=== PATIENT | male | born 1975 ===

== ENCOUNTER 2022-06-05 13:04 | Emergency (ER) | payer MEDICAID, SELFPAY ==
[2022-06-05 13:18] VITALS: BP 127/78; PULSE 72; RESP 16; TEMP 36.6; O2SAT 98; BMI 24.2
--- NOTE | 2022-06-05 14:01 | ED_ITS ---
HPI - Anxiety General Chief Complaint: Anxiety Stated Complaint: anxiety Time Seen by Provider: 06/05/22 13:31 Source: patient Mode of arrival: ambulatory History of Present Illness HPI narrative: This is a 47 years old male presented to the emergency department with a chief complaint of anxiety, denies SI and HI, he states that he live alone and feels lonely. complaint: anxiety Onset (ago): day(s) (2) Severity: mild Quality: constant Relieving factors: nothing Exacerbating factors: nothing Related Data Previous Rx's Medication Instructions Recorded lorazepam 1 mg tablet 1 mg PO DAILY PRN anxiety #3 tabs 06/05/22 Allergies Allergy/AdvReac Type Severity Reaction Status Date / Time No Known Allergies Allergy Verified 06/05/22 13:25 Review of Systems Constitutional: Constitutional: Reports no additional constitutional complaints ENT: Reports system reviewed and no additional complaints, except as documented Respiratory: Respiratory: Reports no additional respiratory complaints Genitourinary: Genitourinary: Reports no additional male genitourinary complaints [facility] Social History Social History Advance Directives: No Advance Directives Information Provided: Yes Physical Exam Vital Signs: Vital Signs: Last Vital Signs Temp 97.8 F 06/05/22 13:18 Pulse 72 06/05/22 13:18 Resp 16 06/05/22 13:18 BP 127/78 06/05/22 13:18 Pulse Ox 98 06/05/22 13:18 O2 Del Method 06/05/22 13:18 BMI result Body Mass Index 24.2 Const: General: cooperative and anxious Nutritional Appearance: average body habitus Orientation/consciousness: patient oriented x3 Limitations: no limitations HEENT: Head: Yes normal to inspection General nose exam: Normal external nose present Face and sinus: Yes normal facial exam Mouth: Normal oral and palatal mucosa present Throat: Yes posterior oropharynx normal Eyes: EOM: EOMs intact bilaterally Neck: Neck: Yes normal visual inspection and Yes full ROM Chest: Chest palpation & inspection: normal inspection of the chest Resp: Effort & Inspection: normal respiratory effort and able to speak in complete sentences Auscultation: clear to auscultation bilaterally Cardio: Jugular venous distension: no JVD Rate: regular rate Rhythm: regular rhythm GI: Inspection: Yes normal to inspection Palpation (GI): Soft to palpation, not firm, nontender, no guarding and not rigid : General: Yes no CVA tenderness Back/Spine/Pelvis: Back: no CVA tenderness Skin: General skin exam: no rashes or lesions noted and elasticity normal Lesions: no lesions Rashes: no rashes Neuro: General: patient oriented x3 Cranial nerves: Yes CN's II-XII intact bilaterally Course Reevaluation(s) Reevaluation #1: We are waiting for crisis eval Time: 16:22 Reevaluation #2: seen by crisis team cleared for d/c ,I will give #3 lorazepam 1mg MDM - Anxiety Lab Data Labs: Lab Results 06/05/22 06/05/22 Range/Units 14:32 14:32 Urine Color YELLOW Urine Appearance HAZY Urine pH 5.5 (5.0-8.0) Ur Specific [place] 1.020 (1.005-1.025) Urine Protein NEG (NEG-TRACE) MG/DL Urine Glucose (UA) NEG (NEG) MG/DL Urine Ketones NEG (NEG) MG/DL Urine Blood 3+ H (NEG) Urine Nitrite NEG (NEG) Ur Leukocyte Esterase NEG (NEG) Urine RBC 5-9 H (0) /HPF Urine WBC 0-2 (0-4) /HPF Ur Squamous Epith Cells 1+ /LPF Urine Bacteria NONE /LPF Urine Opiates Screen Not Detected (Not Detect) Urine Fentanyl Screen Not Detected (Not Detect) Ur Barbiturates Screen Not Detected (Not Detect) Ur Phencyclidine Scrn Not Detected (Not Detect) Ur Amphetamines Screen Not Detected (Not Detect) U Benzodiazepines Scrn Not Detected (Not Detect) Urine Cocaine Screen Not Detected (Not Detect) U Marijuana (THC) Screen POSITIVE H (Not Detect) Discharge Plan Discharge Clinical Impression: Acute anxiety Patient Disposition: Home, Self-Care Instructions: Anxiety (ED) Additional Instructions: call the psychiatric service as discussed,call the number give to you by care team Prescriptions: New lorazepam 1 mg tablet 1 mg PO DAILY PRN (Reason: anxiety) Qty: 3 0RF
[2022-06-05] MEDS: LORazepam 1 MG TABLET PO (14:04)
[2022-06-05 14:53] LABS: Appearance Urine HAZY; Color Urine YELLOW; Glucose Urine UA NEG (NEG); Leukocyte Esterase Urine NEG (NEG); Nitrite Urine NEG (NEG); PH 5.5 (5.0-8.0); UACC Culture Trigger NO; Urine Blood 3+ (NEG); Urine Ketones NEG (NEG); Urine Protein NEG (NEG-TRACE)
[2022-06-05 14:57] LABS: Amphetamine Screen Urine Not Detected (Not Detect); Barbiturates, Urine Not Detected (Not Detect); Benzodiazepines Screen Urine Not Detected (Not Detect); Cannabinoid Screen Urine POSITIVE (Not Detect); Cocaine Screen Urine Not Detected (Not Detect); Fentanyl, urine Not Detected (Not Detect); Opiate Screen Urine Not Detected (Not Detect); Phencyclidine Screen Urine Not Detected (Not Detect)
[2022-06-05 15:07] LABS: Squamous Epithelial Cell Urine 1+ /LPF
[2022-06-05 15:09] LABS: WBC Urine 0-2 /HPF (0-4)
--- NOTE | 2022-06-05 16:30 | MHC.CARE ---
CARE team consult requested and risk assessment was done. MD refereed PT due to depression and anxiety, he reports poor sleep and lives alone. 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
--- NOTE | 2022-06-05 18:14 | MHC.CARE ---
CARE team met with Pt to assess level of risk for harm to self or others after Pt was referred to CARE team by MD due to depression and anxiety. 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 Pt reports he chokes on his food as the food gets stuck in his throat and he is not able to breath which gives him anxiety. Pt reports he is fearful to eat as a result of this. Pt reports after these incidences occur his appetite is poor as he is fearful if he eats he will choke. Pt reports he was in [facility] 8 months for weeks due to a blood infection , he reports he lives alone in [place], [place],however he has been staying with his mother and other family members in the [place] area due to his anxiety and fear of choking and swallowing issues. Pt reports he has been depressed as he is lonely and his passed in 2009, he denies any prior psychiatric admissions or treatment. Pt reports the year after his 's he did have vague suicidal thoughts ,however states he has children so he would never harm himself. Pt reports he was assigned an outpatient therapists through [facility], Manish Viral @ [phone] ext [phone] and has an initial intake on 06/07/22. Pt reports he feels safe returning back to his mothers home and denies any suicidal or homicidal ideation plan or intent as well as any audio or visual hallucinations and does not appear to be responding to any internal stimuli currently.Pt denies any prior history of self harming behaviors or suicide attempts. Recommendation is for Pt to discharge back to his mothers home and follow up with current outpatient therapists and will discuss medication prescriber with the on Monday06/07/22. CARE team called and left message on voicemail of outpatient therapists and recommended discussing medication prescriber with Pt per his requests.
== END 2022-06-05 16:42 | disposition home or self-care (01) ==
PROVIDERS: Emergency Provider Emergency Medicine; PCP Physician Assistant
DX: F41.9 Anxiety disorder, unspecified (principal); F32.A Depression, unspecified; F12.90 Cannabis use, unspecified, uncomplicated
CPT/HCPCS: 80307; 81001; 99283; 99284

== ENCOUNTER 2023-01-13 11:05 | Outpatient (REF) | payer MEDICAID, SELFPAY ==
--- NOTE | ~2023-01-13 | XR_ITS ---
EXAMINATION: XR CHEST 2 VIEWS CLINICAL INFORMATION: Psoriasis vulgaris. COMPARISON: Chest radiographs dated 02/18/2016. TECHNIQUE: Frontal and lateral views of the chest were obtained. FINDINGS: The heart, great vessels, pulmonary vasculature and mediastinum are normal. The lungs show no focal infiltrate, effusion or pneumothorax. There is no acute osseous abnormality. XR/XR chest 2V IMPRESSION: No active cardiopulmonary disease.
== END 2023-01-13 11:06 | disposition home or self-care (01) ==
LOC: HO.LAB 11:05
PROVIDERS: PCP Physician Assistant; Visit Provider Dermatology
DX: L40.0 Psoriasis vulgaris (principal)
CPT/HCPCS: 71046

== ENCOUNTER 2023-02-19 10:42 | Emergency (ER) | payer MEDICAID, SELFPAY ==
[2023-02-19 10:46] VITALS: BP 134/75; PULSE 87; RESP 20; TEMP 36.7; O2SAT 100; BMI 38.8
--- NOTE | 2023-02-19 11:44 | ED.SKABFB ---
HPI - Skin/Abscess/Foreign Bdy General Chief complaint: Skin/Abscess/Foreign Body Stated complaint: Rash all over body Time Seen by Provider: 02/19/23 11:26 Source: patient Mode of arrival: ambulatory Limitations: no limitations History of Present Illness HPI narrative: 47-year-old male with a past medical history of psoriasis who is being followed by Dermatology in [place] who is presenting to the ER with complaints of worsening psoriasis rash to the entire body worsening since June after his health services director which is IM injection. Patient is unsure what IM injection he is currently on although he used to be on 1 he reports that was every 2 weeks that was working really well then the health services director decided to change the IM injection in June and since then he has been having worsening psoriasis. Reports he is not on any oral steroids or any topical creams although has been using Vaseline. Reports that he would like a topical cream due to it was helping with his skin being moist and he does not believe and IM injection is helping with this. He denies any trouble swallowing or breathing, chest pain or shortness of breath, sore throat, fevers or chills or any other symptoms complaints or concerns at this time. MD complaint: rash Onset (ago): month(s) Location: generalized Severity: severe Quality: constant and pruritic Pain Consistency: constant Relieving factors: none Exacerbating factors: none Context: other (Psoriasis) Associated symptoms: denies other symptoms Treatments prior to arrival: other (see above ) Related Data Previous Rx's Medication Instructions Recorded lorazepam 1 mg tablet 1 mg PO DAILY PRN anxiety #3 tabs 06/05/22 clobetasol 0.05 % topical ointment 1 appl topical BID #454 grams 02/19/23 prednisone 20 mg tablet 40 mg PO DAILY inflammation 5 days 02/19/23 #10 tabs Allergies Allergy/AdvReac Type Severity Reaction Status Date / Time No Known Allergies Allergy Verified 06/05/22 13:25 Review of Systems Review of Systems: Constitutional : No Fever, No Chills , no body aches, no recent illness Head/Face: No facial swelling, No facial redness ENT/Mouth : No oral/throat swelling, No Hoarseness, No Swallowing Difficulty Eyes: No Eye Pain, No Swelling, No Redness Cardiovascular : No Chest Pain, No SOB, No palpitations Respiratory : No Cough, No Sputum, No Wheezing, No Smoke Exposure, No Dyspnea Gastrointestinal : No Nausea, No Vomiting, No Diarrhea, No abdominal Pain Genitourinary : No Dysuria, No Urinary Frequency, No Hematuria Musculoskeletal : No joint pain, No Myalgias, No Joint Swelling Skin : No Skin Lesions, positive rash Neuro : No Weakness, No Numbness, No Headache, No dizziness, No tingling Psych : No Anxiety/Panic, No Depression Heme/Lymph: No Bruising, No Lymphadenopathy Endocrine : No Polyuria, No Polydipsia Denies changes in lotions or detergents. Denies new medications or any changes in medications. Denies drainage from rash. Denies any recent sick contacts or recent travel. Yes all other systems are reviewed and are negative COUNT INCLUDES THE [facility] Past Medical History Attestation statement: The following information was validated with the patient. Source: old records reviewed and nursing notes reviewed Social History Social History Advance Directives: No Advance Directives Information Provided: No Physical Exam Vital Signs: Vital Signs: Last Vital Signs Temp 98.1 F 02/19/23 10:46 Pulse 87 02/19/23 10:46 Resp 20 02/19/23 10:46 BP 134/75 02/19/23 10:46 Pulse Ox 100 02/19/23 10:46 O2 Del Method Room Air 02/19/23 10:46 BMI result Body Mass Index 38.8 Vital signs reviewed. Blood pressure normal. Pulse normal. Respiration normal. Oxygen normal. Temperature normal. Appearance: Alert. Oriented X3. No acute distress. Head: Normal external exam. Normocephalic. Atraumatic. Eyes: PERRLA. EOMI. Conjunctiva and sclera normal. Eyelids normal. ENT: EAC normal. TM's Normal. Pharynx normal. Uvula midline. Moist mucous membranes. No lesions/ulcerations or masses noted on the tongue. Normal voice. No trismus noted. No drooling noted. No muffled voice noted. Neck: Normal inspection. Neck supple. FROM. No adenopathy. Thyroid Normal. No meningeal signs. CVS: Normal heart rate and rhythm. Heart sound normal. Pulses normal throughout. No murmurs/rales/gallops. Respiratory: No respiratory distress. Painless inspiration. Breath sounds normal. No wheezes/rales/rhonchi noted. Chest nontender. No accessory muscle usage noted or decreased air movement noted. Abdomen: Soft and nontender. Back: Full range of motion noted. Nontender. Skin: Skin warm and dry. Normal skin color. Normal skin turgor. Patient with dry silvery plaques and skills throughout the entire body consistent with psoriasis. No drainage not consistent with infection. No lacerations noted. Extremities: Extremities exhibit normal range of motion and nontender. Neuro: Oriented X 3. No motor deficit. No sensory deficit. Reflexes normal. Normal steady gait. No focal neuro deficits noted. CN's II-XII intact bilaterally? Vascular: + radial pulses. Normal cap refill. No cyanosis noted to upper extremity nails Course Course Course Narrative: Patient with severe psoriasis rash throughout the entire body. No signs of infection. I considered Smith Ozzy, TEN, SSS, EM, infx, sepsis but the hx, exam & or data did not support the dxs.??Pt/family was advised that some diseases present atypically & the pt was given explicit DC instructions. Will DC home with topical steroids and p.o. steroids and instructions to follow-up with health services director and to return if any new or worsening symptoms. Patient understands agrees with this plan. Medications Administered Discontinued Medications Generic Name Dose Route Start Last Admin Trade Name Freq PRN Reason Stop Dose Admin Methylprednisolone Sodium Succinate 60 mg 02/19/23 11:54 02/19/23 12:06 Methylprednisolone Sod Succ 125 Mg/2 Ml Vial IM 02/19/23 11:55 60 mg ONCE ONE Administration Discharge Plan Discharge Clinical Impression: Psoriasis Patient Disposition: Home, Self-Care Instructions: Psoriasis (ED) Prescriptions: New clobetasol 0.05 % ointment 1 appl topical BID Qty: 454 1RF prednisone 20 mg tablet 40 mg PO DAILY 5 Days Qty: 10 0RF No Action lorazepam 1 mg tablet 1 mg PO DAILY PRN (Reason: anxiety) Qty: 3 0RF Referrals: Gretchen Rich PA-C [Primary Care Provider] - 1 day Interventions: ED Discharge Assessment Last Done: 02/19/23 12:30
[2023-02-19] MEDS: methylPREDNISolone Sod Succ 125 MG/2 ML VIAL 60 MG IM (12:06)
== END 2023-02-19 12:34 | disposition home or self-care (01) ==
PROVIDERS: Emergency Provider Emergency Medicine; PCP Physician Assistant
DX: L40.9 Psoriasis, unspecified (principal); R21 Rash and other nonspecific skin eruption
CPT/HCPCS: 96372; 96374; 99283; 99284; J2930

== ENCOUNTER 2023-04-02 13:34 | Emergency (ER) | payer OTHER, SELFPAY ==
[2023-04-02 13:42] VITALS: BP 142/69; PULSE 89; RESP 18; TEMP 36.6; O2SAT 98; BMI 38.7
--- NOTE | 2023-04-02 13:42 | ED_ITS ---
HPI - Skin/Abscess/Foreign Bdy General Chief complaint: General Medical <TIM Levine - Last Filed: 04/02/23 13:48> Stated complaint: psoriasis flair up <TIM Levine Last Filed: 04/02/23 13:48> Time Seen by Provider: 04/02/23 14:55 <TIM Levine Last Filed: 04/02/23 13:48> Source: patient <TIM Torres Last Filed: 04/02/23 15:47> Mode of arrival: ambulatory <TIM Torres Last Filed: 04/02/23 15:47> Limitations: no limitations <TIM Torres Last Filed: 04/02/23 15:47> History of Present Illness HPI narrative: 47-year-old male presents with what he thinks is a psoriatic flare, patient reports he has a history of significant psoriasis, he reports an itchy rash that is uncomfortable throughout his entire body, he is followed by dermatology and was receiving biologic however no longer receiving them. He t ells me that this flare is better than last time. He reports last time they gave him oral steroids, a cream and it completely cleared his rash. He denies any trouble swallowing or breathing, chest pain, shortness of breath, changes in voice, sore throat, fevers, chills, nausea, vomiting, abdominal pain, drooling. No recent antibiotics or new medications. No new foods. <TIM Torres Last Filed: 04/02/23 15:47> Related Data Home medications: Previous Rx's Medication Instructions Recorded lorazepam 1 mg tablet 1 mg PO DAILY PRN anxiety #3 tabs 06/05/22 clobetasol 0.05 % topical ointment 1 appl topical BID #454 grams 02/19/23 prednisone 20 mg tablet 40 mg PO DAILY inflammation 5 days 02/19/23 #10 tabs clobetasol 0.05 % topical ointment 1 appl topical BID 1 week #60 grams 04/02/23 hydroxyzine HCl 25 mg tablet 25 mg PO BID PRN anxiety #30 tabs 04/02/23 prednisone 20 mg tablet 60 mg PO DAILY 5 days #15 tabs 04/02/23 <TIM Levine - Last Filed: 04/02/23 13:48> Allergies/Adverse reactions: Allergies Allergy/AdvReac Type Severity Reaction Status Date / Time No Known Allergies Allergy Verified 04/02/23 13:42 <TIM Levine - Last Filed: 04/02/23 13:48> Review of Systems Review of Systems: Constitutional : No Weight loss, No Fever, No Chills, No Fatigue, No Malaise ENT/Mouth : No sore throat, No Rhinorrhea Eyes: No Eye Pain, No Swelling, No Redness Cardiovascular : No Chest Pain, No SOB, No Dyspnea on Exertion, No Orthopnea, No Edema, No Palpitations Respiratory : No Cough, No Sputum, No Wheezing Gastrointestinal : No Nausea, No Vomiting, No Diarrhea, No Constipation, No abdominal Pain, No Hematochezia, No Melena Genitourinary : No Dysuria, No Urinary Frequency, No Hematuria, Musculoskeletal : No joint pain, No Myalgias, No Joint Swelling Skin : No Skin Lesions, + rash Neuro : No Weakness, No Numbness, No Dizziness, No Headache Psych : No Anxiety/Panic, No Depression All other systems reviewed and are negative <TIM Torres - Last Filed: 04/02/23 15:47> Yes all other systems are reviewed and are negative <TIM Torres Last Filed: 04/02/23 15:47> [facility] Past Medical History Attestation statement: The following information was validated with the patient. <TIM Torres - Last Filed: 04/02/23 15:47> Source: old records reviewed and nursing notes reviewed <TIM Torres - Last Filed: 04/02/23 15:47> Social History Social History: Social History Advance Directives: No Advance Directives Information Provided: No <TIM Levine Last Filed: 04/02/23 13:48> Physical Exam Vital Signs: Vital Signs: Last Vital Signs Temp 98 F 04/02/23 13:42 Pulse 89 04/02/23 13:42 Resp 18 04/02/23 13:42 BP 142/69 H 04/02/23 13:42 Pulse Ox 98 04/02/23 13:42 O2 Del Method Room Air 04/02/23 13:42 BMI result Body Mass Index 38.7 <TIM Levine - Last Filed: 04/02/23 13:48> Vital Signs: Last Vital Signs Temp 98 F 04/02/23 13:42 Pulse 89 04/02/23 13:42 Resp 18 04/02/23 13:42 BP 142/69 H 04/02/23 13:42 Pulse Ox 98 04/02/23 13:42 O2 Del Method Room Air 04/02/23 13:42 BMI result Body Mass Index 38.7 vss <TIM Torres - Last Filed: 04/02/23 15:47> Appearance: Alert.? Oriented X3.? No acute distress.? Head: Normocephalic, atraumatic, no step-offs or deformities Eyes: Pupils equal, round and reactive to light.? Neck: Normal inspection.? Neck supple.? CVS: Normal heart rate and rhythm.? Pulses normal.? Respiratory: No respiratory distress.? Breath sounds normal.? Abdomen: Soft and nontender.? Skin: Skin warm and dry.? Normal skin color.? Normal skin turgor.?+ diffuse psoriatic rash with tries silvery plaques in scales throughout entire body. Please refer to imaging Extremities: No lower extremity edema.? No calf ttp. 5/5 strength to bilateral upper and lower extremities Back: No midline tenderness, no C-spine tenderness, full range of motion, no CVA tenderness bilaterally Neuro: Oriented X 3.? No motor deficit.? No sensory deficit. CN 2-12 intact <TIM Torres - Last Filed: 04/02/23 15:47> Course Course Course Narrative: RME: 47yo M w/PMHx psoriasis c/o worsening psoriasis x1.5 weeks. denies new exposures/lotions, difficulty swallowing/breathing + diffuse psoraisis rash over entire body with skin scaling/peeling to back. Erythematous. Warm to touch Labs, IM Methylprednisone ordered Full HPI, ROS and PE to be performed by primary ED provider. <TIM Levine - Last Filed: 04/02/23 13:48> Medications Administered Discontinued Medications Generic Name Dose Route Start Last Admin Trade Name Freq PRN Reason Stop Dose Admin Methylprednisolone Sodium Succinate 60 mg 04/02/23 13:44 04/02/23 14:51 Methylprednisolone Sod Succ 125 Mg/2 Ml Vial IM 04/02/23 13:45 60 mg ONCE ONE Administration <TIM Levine Last Filed: 04/02/23 13:48> Medications Administered Discontinued Medications Generic Name Dose Route Start Last Admin Trade Name Freq PRN Reason Stop Dose Admin Methylprednisolone Sodium Succinate 60 mg 04/02/23 13:44 04/02/23 14:51 Methylprednisolone Sod Succ 125 Mg/2 Ml Vial IM 04/02/23 13:45 60 mg ONCE ONE Administration <TIM Torres - Last Filed: 04/02/23 15:47> Medical Decision Making Medical Decision Making [facility] Narrative: 47-year-old male history of severe psoriasis presents with what he thinks is a psoriasis flare, reports itchiness and crusting of skin throughout his entire body Physical exam please refer to images in chart however he is noted to have a psoriatic rash throughout. With silvery plaques & scales. ?I do not suspect camacho Ozzy, TEN, SSS, EM, infx,, red man syndrome, sepsis but the hx, exam & or data did not support the dxs.? This is likely psoriasis, patient tells me this seems like his typical flare. No signs of anaphylaxis, airway compromise Patient received IM Solu-Medrol. Will discharge him home with, lotion, Atarax for itching. I did discuss this case with my attending no need for lab work, outpatient follow-up with dermatology. <TIM Torres - Last Filed: 04/02/23 15:47> Differential Diagnosis Differential Diagnoses: The differential diagnosis associated with the presentation includes <TIM Torres Last Filed: 04/02/23 15:47> ?I do not suspect camacho Ozzy, TEN, SSS, EM, infx, red man syndrome, sepsis but the hx, exam & or data did not support the dxs.? This is likely psoriasis, patient tells me this seems like his typical flare. No signs of anaphylaxis, airway compromise <TIM Torres Last Filed: 04/02/23 15:47> Admission/Observation Consideration of admission/observation: Escalation of care including admission/observation considered <TIM Torres Last Filed: 04/02/23 15:47> Not indicated <TIM Torres - Last Filed: 04/02/23 15:47> Core Measures AMI core measures followed: Yes <TIM Torres Last Filed: 04/02/23 15:47> Measure exclusions: not indicated <TIM Torres Last Filed: 04/02/23 15:47> Critical Care Time Critical Care Time Critical Care Time: No <TIM Torres Last Filed: 04/02/23 15:47> Discharge Plan Discharge Clinical Impression: Psoriasis <TIM Levine Last Filed: 04/02/23 13:48> Patient Disposition: Home, Self-Care <TIM Levine Last Filed: 04/02/23 13:48> Instructions: Psoriasis (ED) <TIM Levine Last Filed: 04/02/23 13:48> Additional Instructions: Take your medications as prescribed. If you were prescribed antibiotics today, it is important that you take your medication to their entirety, do not skip any doses, do not finish them early. Follow-up with your primary care provider this week. Follow-up with Dermatology within the next 2-3 days Return to the emergency department with new or worsening symptoms. Such as fevers, chills, chest pain, shortness of breath, nausea, vomiting, dizziness, headache, vision changes, lethargy In case of emergency call 911 Atarax or hydroxazine can be taking for itching. Do not take this medication with Benadryl. You will likely require a biologic agent to treat your psoriasis. <TIM Levine Last Filed: 04/02/23 13:48> Prescriptions: New clobetasol 0.05 % ointment 1 appl topical BID 7 Days Qty: 60 0RF prednisone 20 mg tablet 60 mg PO DAILY 5 Days Qty: 15 0RF hydroxyzine HCl 25 mg tablet 25 mg PO BID PRN (Reason: anxiety) Qty: 30 0RF Continued clobetasol 0.05 % ointment 1 appl topical BID Qty: 454 1RF No Action lorazepam 1 mg tablet 1 mg PO DAILY PRN (Reason: anxiety) Qty: 3 0RF prednisone 20 mg tablet 40 mg PO DAILY 5 Days Qty: 10 0RF <TIM Levine - Last Filed: 04/02/23 13:48> Referrals: Gretchen Rich PA-C [Primary Care Provider] - 2 days <TIM Levine - Last Filed: 04/02/23 13:48> Stand Alone Forms: Work/School Release <TIM Levine - Last Filed: 04/02/23 13:48>
[2023-04-02] MEDS: methylPREDNISolone Sod Succ 125 MG/2 ML VIAL 60 MG IM (14:51)
== END 2023-04-02 16:07 | disposition home or self-care (01) ==
PROVIDERS: Emergency Provider Emergency Medicine; PCP Physician Assistant
DX: L40.9 Psoriasis, unspecified (principal); L29.9 Pruritus, unspecified; Z79.899 Other long term (current) drug therapy
CPT/HCPCS: 96372; 99283; 99284; J2930

== ENCOUNTER 2023-07-01 23:35 | Emergency (ER) | payer OTHER, SELFPAY ==
[2023-07-02 01:30] VITALS: BP 131/78; PULSE 74; RESP 18; TEMP 36.7; O2SAT 98; BMI 37.8
[2023-07-02 06:45] VITALS: BP 131/81; PULSE 74; RESP 18; TEMP 36.6; O2SAT 98
[2023-07-02 07:50] LABS: Basophils Percent Auto 0.2 % (0-2); Eosinophils Absolute Auto 0.2 X10*3/uL (0.0-0.4); Eosinophils Percent Auto 1.6 % (0-4); Hematocrit 40.2 % (42.0-52.0); Hemoglobin 13.1 g/dl (14.0-18.0); Imm Gran Abs Auto 0.08 X10*3/uL (0.00-0.03); Imm Gran Pct Auto 0.5 % (0.0-0.4); Lymphocytes Absolute Auto 1.3 X10*3/uL (1.2-4.9); Lymphocytes Percent Auto 8.2 % (20-40); MANUAL DIFF FLAG SCAN; Mean Corpuscular HGB Conc 32.6 g/dl (31.0-36.0); Mean Corpuscular Hemoglobin 27.3 pg (27.0-33.0); Mean Corpuscular Volume 83.9 fL (80.0-98.0); Mean Platelet Volume 11.4 fL (9.4-12.4); Monocytes Absolute Auto 1.6 X10*3/uL (0.1-1.2); Monocytes Percent Auto 10.2 % (2-11); Neutrophils Absolute Auto 12.3 x10*3/uL (2.0-8.3); Neutrophils Percent Auto 79.3 % (45-73); Platelet Count 304 X10*3/uL (160-400); Red Blood Count 4.79 X10*6/uL (4.60-5.80); SCAN SMEAR FLAG 1; White Blood Count 15.5 X10*3/uL (4.8-10.8)
[2023-07-02 08:00] LABS: Anion Gap 19 (12-20); Blood Urea Nitrogen 11 mg/dL (9-16); Calcium 9.3 mg/dL (8.4-10.2); Carbon Dioxide 21 mmol/L (22-29); Chloride 105 mmol/L (96-108); Creatinine Clr Calc Pharmacy 144.1; Estimated Glomerular Filt Rate > 60; Glucose Random 97 mg/dL (60-115); Potassium 3.2 mmol/L (3.3-5.1); Sodium 142 mmol/L (135-145)
--- NOTE | 2023-07-02 08:05 | ED.SKABFB ---
HPI - Skin/Abscess/Foreign Bdy General Chief complaint: Skin/Abscess/Foreign Body Stated complaint: psoriasis all over body Time Seen by Provider: 07/02/23 08:01 Source: patient Mode of arrival: ambulatory Limitations: no limitations History of Present Illness HPI narrative: patient presented to the emergency department complaining of an exacerbation psoriasis. He denies any fever chills vomiting, denies any other systemic symptoms. he is in treatment with IV meds next IV treatment is on July 12. complaint: rash Onset (ago): week(s) (1) Location: generalized Severity: moderate Quality: burning Pain Consistency: constant Relieving factors: none Exacerbating factors: none Associated symptoms: denies other symptoms Related Data Previous Rx's Medication Instructions Recorded lorazepam 1 mg tablet 1 mg PO DAILY PRN anxiety #3 tabs 06/05/22 clobetasol 0.05 % topical ointment 1 appl topical BID #454 grams 02/19/23 prednisone 20 mg tablet 40 mg PO DAILY inflammation 5 days 02/19/23 #10 tabs clobetasol 0.05 % topical ointment 1 appl topical BID 1 week #60 grams 04/02/23 hydroxyzine HCl 25 mg tablet 25 mg PO BID PRN anxiety #30 tabs 04/02/23 prednisone 20 mg tablet 60 mg PO DAILY 5 days #15 tabs 04/02/23 clobetasol 0.05 % topical cream 1 appl topical BID 2 weeks #60 07/02/23 grams prednisone 20 mg tablet 40 mg PO DAILY 5 days #10 tabs 07/02/23 Allergies Allergy/AdvReac Type Severity Reaction Status Date / Time No Known Allergies Allergy Verified 04/02/23 13:42 Review of Systems Cardiovascular: Cardiovascular: Reports no additional cardiovascular complaints Respiratory: Respiratory: Reports no additional respiratory complaints Neurologic: Reports system reviewed and no additional complaints, except as documented Allergic/Immunologic: Comments: rash secondaru to psoriasis [facility] Past Medical History [facility] Narrative: psoriasis Social History Social History Alcohol intake: never Smoked in Last 30 Days: No Use of substances other than those prescribed or required for medical reasons: Yes Substance Use Type: Marijuana Advance Directives: No Advance Directives Information Provided: Yes Physical Exam Vital Signs: Vital Signs: Last Vital Signs Temp 98.5 F 07/02/23 08:12 Pulse 64 07/02/23 08:12 Resp 18 07/02/23 08:12 BP 133/72 07/02/23 08:12 Pulse Ox 99 07/02/23 08:12 O2 Del Method Room Air 07/02/23 08:12 BMI result Body Mass Index 37.8 Const: Other: He looks well,he is not toxic-appearing ,he is afebrile General: cooperative, healthy appearing, comfortable, no acute distress, well developed, alert, awake and Physically active Nutritional Appearance: well nourished Orientation/consciousness: patient oriented x3 Limitations: no limitations HEENT: Head: Yes normal to inspection Face and sinus: Yes normal facial exam Mouth: Normal oral and palatal mucosa present Neck: Neck: Yes normal visual inspection and Yes full ROM Chest: Chest palpation & inspection: normal inspection of the chest Resp: Effort & Inspection: normal respiratory effort and able to speak in complete sentences Auscultation: clear to auscultation bilaterally Cardio: Jugular venous distension: no JVD Rate: regular rate Rhythm: regular rhythm GI: Inspection: Yes normal to inspection Palpation (GI): Soft to palpation, not firm, nontender, no guarding and not rigid Percussion: Yes normal to percussion Skin: Other: General skin exam: other ( skin shows a diffuse rash of psoriasis see pictures) Rashes: other ( diffuse psoriasis rash) Nails: other Neuro: General: patient oriented x3 Cranial nerves: Yes CN's II-XII intact bilaterally Course Course Course Narrative: patient presented with diffuse rales / exacerbation of psoriasis, he looks well is not toxic-appearing he has no fever he is normotensive and not tachycardic I do not think disease cellulitis, I would the patient be septic. I think is very reasonable to treat the patient with p.o. prednisone Medications Administered Discontinued Medications Generic Name Dose Route Start Last Admin Trade Name Freq PRN Reason Stop Dose Admin Potassium Chloride 40 meq 07/02/23 08:27 07/02/23 08:37 Potassium Chloride Er 20 Meq Tab.Er.Prt PO 07/02/23 08:28 40 meq ONCE ONE Administration Prednisone 60 mg 07/02/23 08:27 07/02/23 08:37 Prednisone 20 Mg Tablet PO 07/02/23 08:28 60 mg ONCE ONE Administration Medical Decision Making Medical Decision Making MDM Narrative: patient presented with exacerbation of psoriasis, looks well is nontoxic afebrile,it is reasonable to treat with po steroids he states that last time worked well Differential Diagnosis Differential Diagnoses: The differential diagnosis associated with the presentation includes cellulitis but no fever no toxic/ psoriasis exacerbation/allergic reaction no hives /jose angel Ozzy but no mouth lesion Admission/Observation Consideration of admission/observation: Escalation of care including admission/observation considered Lab Data [facility] Lab Attestation statement: I reviewed the patient's lab results. 07/02/23 07:42 07/02/23 07:42 Labs: Lab Results 07/02/23 07/02/23 Range/Units 07:42 07:42 WBC 15.5 H (4.8-10.8) X10*3/uL RBC 4.79 (4.60-5.80) X10*6/uL Hgb 13.1 L (14.0-18.0) g/dl Hct 40.2 L (42.0-52.0) % MCV 83.9 (80.0-98.0) fL MCH 27.3 (27.0-33.0) pg MCHC 32.6 (31.0-36.0) g/dl RDW 13.0 (11.0-16.0) % Plt Count 304 (160-400) X10*3/uL MPV 11.4 (9.4-12.4) fL Immature Gran % (Auto) 0.5 H (0.0-0.4) % Neut % (Auto) 79.3 H (45-73) % Lymph % (Auto) 8.2 L (20-40) % [place] % (Auto) 10.2 (2-11) % Eos % (Auto) 1.6 (0-4) % Baso % (Auto) 0.2 (0-2) % Lymph # (Auto) 1.3 (1.2-4.9) X10*3/uL [place] # (Auto) 1.6 H (0.1-1.2) X10*3/uL Eos # (Auto) 0.2 (0.0-0.4) X10*3/uL Baso # (Auto) 0.0 (0.0-0.2) X10*3/uL Abs Immat Gran (auto) 0.08 H (0.00-0.03) X10*3/uL Absolute Neuts (auto) 12.3 H (2.0-8.3) x10*3/uL Absolute Nucleated RBC 0.000 (0.0-0.012) X10*3/uL Nucleated RBC % (auto) 0.0 (0.0-0.2) /100WBC Smear Tech's Comments VERIFIED Sodium 142 (135-145) mmol/L Potassium 3.2 L (3.3-5.1) mmol/L Chloride 105 (96-108) mmol/L Carbon Dioxide 21 L (22-29) mmol/L Anion Gap 19 (12-20) BUN 11 (9-16) mg/dL Creatinine 0.74 (0.5-1.4) mg/dL Estim Creat Clear Calc 144.1 Estimated GFR > 60 Random Glucose 97 (60-115) mg/dL Calcium 9.3 (8.4-10.2) mg/dL External Record Review External record reviewed: Inpatient record Prescription Management prednisone Chronic Conditions psoriasis Discharge Plan Discharge Clinical Impression: Psoriasis, Hypokalemia Patient Disposition: Home, Self-Care Instructions: Psoriasis (ED) Prescriptions: New prednisone 20 mg tablet 40 mg PO DAILY 5 Days Qty: 10 0RF clobetasol 0.05 % cream 1 appl topical BID 14 Days Qty: 60 0RF No Action lorazepam 1 mg tablet 1 mg PO DAILY PRN (Reason: anxiety) Qty: 3 0RF clobetasol 0.05 % ointment 1 appl topical BID Qty: 454 1RF prednisone 20 mg tablet 40 mg PO DAILY 5 Days Qty: 10 0RF clobetasol 0.05 % ointment 1 appl topical BID 7 Days Qty: 60 0RF prednisone 20 mg tablet 60 mg PO DAILY 5 Days Qty: 15 0RF hydroxyzine HCl 25 mg tablet 25 mg PO BID PRN (Reason: anxiety) Qty: 30 0RF Referrals: Gretchen Rich PA-C [Primary Care Provider] - 2 days
[2023-07-02 08:12] VITALS: BP 133/72; PULSE 64; RESP 18; TEMP 36.9; O2SAT 99
[2023-07-02 08:17] LABS: SLIDE REVIEW VERIFIED
[2023-07-02] MEDS: Potassium Chloride ER 20 MEQ TAB.ER.PRT 40 MEQ PO (08:37)
[2023-07-02] MEDS: predniSONE 20 MG TABLET 60 MG PO (08:37)
== END 2023-07-02 08:44 | disposition home or self-care (01) ==
PROVIDERS: Emergency Provider Emergency Medicine; PCP Physician Assistant
DX: L40.9 Psoriasis, unspecified (principal); E87.6 Hypokalemia; Z79.899 Other long term (current) drug therapy
CPT/HCPCS: 36415; 80048; 85025; 99283; 99284

== ENCOUNTER 2023-07-09 16:14 | Inpatient (IN) | payer MEDICAID, SELFPAY ==
--- NOTE | ~2023-07-09 | CT_ITS ---
EXAMINATION: CT PELVIS WITH CONTRAST CLINICAL INFORMATION: Possible scrotal abscess. COMPARISON: None available. TECHNIQUE: Helical scanning was performed with submillimeter collimation through the pelvis with the use of oral contrast and during bolus intravenous injection of 85 mL of Omnipaque 350 intravenous contrast. Sagittal and coronal multiplanar 2-D reconstructions were obtained. This CT examination was performed using dose optimization techniques as appropriate, variously including the following: *Automated exposure control *Adjustment of mA and/or kV according to patient size (this includes techniques or standardized protocols for targeted exams where dose is matched to indication/reason for exam; i.e. extremities or head) *Use of iterative reconstruction technique DLP: 410 mGy-cm FINDINGS: Mild fat stranding in the superficial soft tissues of the thighs, left side axial image 68 and right side axial image 71 series 2. Bilateral pelvic and inguinal lymphadenopathy for instance a left inguinal lymph node measuring 1.6 cm short axis on the left side on axial image 40 series 2, and a right common iliac lymph node measuring 1.1 cm short axis on image 5 series 2. No organized collection or abscess formation. The visualized bowel is within normal limits. No focal urinary bladder abnormality. Normal prostate gland and seminal vesicles. No free fluid in the pelvis. CT/CT pelvis w IV con IMPRESSION: 1. Mild fat stranding in the superficial soft tissues of the thighs, left side greater than right. No organized collection or abscess formation. Further evaluation with a targeted scrotal ultrasound could be obtained as clinically indicated. 2. Bilateral pelvic and inguinal lymphadenopathy, nonspecific. If the patient has risk factors for malignancy if tissue sampling is not obtained, a short-term follow-up examination is recommended.
--- NOTE | ~2023-07-09 | US_ITS ---
EXAMINATION: US SCROTUM CLINICAL INFORMATION: Scrotal cellulitis. COMPARISON: None available. TECHNIQUE: A sonogram of the scrotum was performed assessing chapman-scale appearance and color Doppler flow. Spectral Doppler analysis of the arterial and venous flow were performed in the testes bilaterally. FINDINGS: RIGHT: Right testicle measures 4.3 x 2.2 x 3.9 cm, volume 19.2 mL. No focal testicular parenchymal lesions are visualized. Spectral Doppler analysis of the arterial and venous flow is normal in the right testis. Right epididymal head is normal in size. Right epididymal body and tail is not seen No right hydrocele or varicocele is seen. Right epididymal Doppler flow is normal. LEFT: Left testicle measures 4.3 x 2.0 x 3.2 cm, volume 15 mL. The left testes is slightly heterogeneous with increased echogenicity. No focal lesion seen. Spectral Doppler analysis of the arterial and venous flow is normal in the left testis. Left epididymal head is normal in size. Left epididymal tail is not visualized. No left hydrocele or varicocele is seen. Left epididymal Doppler flow is normal. US/US scrotum IMPRESSION: 1. Slightly heterogeneous left testes with increased echogenicity but no focal lesion seen. 2. The right testes and visualized epididymal head are unremarkable. 3. The left epididymal tail is not seen. 4. There is normal vascular flow seen to both testes and epididymis on Doppler exam.
[2023-07-09 17:06] VITALS: BP 125/72; PULSE 112; RESP 20; TEMP 36.9; O2SAT 100; BMI 43.8
--- NOTE | 2023-07-09 17:08 | ED_ITS ---
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 Patient states that this flare has been getting worse and now involves open areas on his scrotum and finger. Patient states that he has felt febrile and has had chills. 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 Patient denies any dizziness, lightheadedness, abdominal pain, nausea, vomiting, blurry vision, double vision, loss of vision, chest pain, difficulty breathing, shortness of breath, back pain, night sweats, pain with urination, increased urinary frequency, increased urinary urgency, blood in his urine or stool, syncope or a near syncopal episode, recent trauma or falls, bowel incontinence, bladder incontinence, bowel retention, bladder retention, or any other complaints at this time. Onset (ago): day(s) Severity: moderate Severity scale (1-10): 5 Pain Consistency: constant Relieving factors: none Exacerbating factors: none Associated symptoms: fever/chills Treatments prior to arrival: other (biologic medication from curb machine operator and PO steroid) Related Data Home Medications Medication Instructions Recorded Confirmed clobetasol 0.05 % shampoo topical 3XW 07/09/23 deucravacitinib 6 mg tablet 6 mg PO QAM 07/09/23 07/09/23 (Sotyktu) lorazepam 0.5 mg tablet 0.5 mg PO BID PRN anxiety 07/09/23 07/09/23 quetiapine 50 mg tablet (Seroquel) 25 - 50 mg PO BEDTIME PRN Anxiety 07/09/23 07/09/23 Allergies Allergy/AdvReac Type Severity Reaction Status Date / Time No Known Allergies Allergy Verified 04/02/23 13:42 Review of Systems Constitutional: Constitutional: Reports no additional constitutional complaints, Reports chills, Reports fever(s) and Denies night sweats Eyes: Eyes: Reports no additional eye complaints, Denies blurry vision, Denies change in vision, Denies diplopia, Denies eye discharge, Denies loss of vision and Denies eye pain ENT: Denies dizziness Cardiovascular: Cardiovascular: Reports no additional cardiovascular complaints, Denies chest pain, Denies lightheadedness, Denies Loss of Con sciousness and Denies dyspnea Respiratory: Respiratory: Reports no additional respiratory complaints and Denies dyspnea Gastrointestinal: Gastrointestinal: Reports no additional gastrointestinal complaints, Denies abdominal pain, Denies melena, Denies hematochezia, Denies change in bowel habits and Denies change in stool character Genitourinary: Genitourinary: Reports no additional male genitourinary complaints, Denies hematuria, Denies oliguria, Denies difficulty urinating, Denies dysuria, Denies urinary frequency, Denies urinary hesitancy, Denies urinary incontinence and Denies urinary urgency Musculoskeletal: Musculoskeletal: Reports no additional musculoskeletal complaints, Denies numbness and Denies tingling Integumentary/Breasts: Comments: extensive psoriasis to entire body and scrotum Neurologic: Denies dizziness, Denies loss of vision, Denies numbness and Denies tingling Psychiatric: Psychiatric: Reports no additional psychiatric complaints Endocrine: Endocrine: Reports no additional endocrine complaints Hematologic/Lymphatic: Hematologic/Lymphatic: Reports no additional hematologic/lymphatic complaints Allergic/Immunologic: Allergic/Immunologic: Reports no additional allergic/immunologic complaints [facility] Past Medical History Attestation statement: The following information was validated with the patient. Source: old records reviewed and nursing notes reviewed Medical History Anxiety and depression History of psoriasis Surgical History (Updated 07/10/23 @ 06:34 by Jordana Chinchilla MD) No pertinent past surgical history Social History Social History Alcohol intake: never Substance Use Type: Marijuana Advance Directives: No Advance Directives Information Provided: Yes Physical Exam ED Vital Signs: Vital Signs - 24 hr 07/09/23 17:06 07/09/23 18:04 07/09/23 21:20 Temperature 98.5 F 100.0 F 99.5 F Pulse Rate 112 H 103 H Respiratory Rate 20 20 Blood Pressure 125/72 155/76 H Pulse Oximetry 100 98 Oxygen Delivery Method Room Air Room Air 07/09/23 21:20 07/09/23 18:00 Temperature 99.5 F 99.1 F Pulse Rate 78 Respiratory Rate 20 Blood Pressure 130/58 L Pulse Oximetry 97 Oxygen Delivery Method Room Air BMI result Body Mass Index 43.8 Const General: cooperative, no acute distress, alert and awake Nutritional Appearance: well nourished Orientation/consciousness: patient oriented x3 Limitations: no limitations HENMT Head: Yes normal to inspection and Yes atraumatic Ears: hearing grossly normal bilaterally and external ears normal General nose exam: Normal external nose present, no nasal discharge noted and no epistaxis Face and sinus: Yes normal facial exam, No abrasion and No laceration Mouth: Normal oral and palatal mucosa present, no drooling and no muffled voice Eyes General: appearance normal, both eyes and all related structures Periorbital: periorbital findings normal Eyelids: Yes eyelids normal Conjunctivae: conjunctivae normal Pupils: Equal, round and reactive pupils present EOM: EOMs intact bilaterally Neck Neck: Yes normal visual inspection, Yes full ROM and Yes no lymphadenopathy Chest Chest palpation & inspection: normal inspection of the chest Resp Effort & Inspection: normal respiratory effort and able to speak in complete sentences GI Inspection: Yes normal to inspection Skin Other: Neuro General: patient oriented x3 and moves all extremities Cranial nerves: Yes Equal, round and reactive pupils present Cognition (Neuro): normal cognition Motor exam (neuro): 5/5 motor strength present throughout Sensory Exam: Normal double simultaneous stimulation for sensation Coordination: [id number] test normal Extrem General: Yes normal to inspection, Yes full ROM and Yes capillary refill normal Psych Appearance: grossly normal Mental Status: mental status grossly normal Affect: normal affect Attitude: cooperative Thought process: Normal thought process present Thought content: Normal thought content present Insight: Good insight present (Psych) Course Course Course Narrative: RME: 48 yold male presents to the ED for worsening psorairs rash all over his body and no relief with meds. Patient was seen by Dermatolgist and placed on new psorairis meds. Medications Administered Generic Name Dose Route Start Last Admin Trade Name Freq PRN Reason Stop Dose Admin Enoxaparin Sodium 40 mg 07/10/23 08:00 07/10/23 07:26 Enoxaparin Sodium 40 Mg/0.4 Ml Syringe SUBCUT 40 mg Q24H GIOVANA Administration Cefazolin Sodium/Dextrose 2 gm in 50 mls @ 100 mls/hr 07/10/23 00:00 07/10/23 08:04 Ancef IV Infused Q8H GIOVANA Infusion Methylprednisolone Sodium Succinate 40 mg 07/10/23 00:00 07/10/23 07:26 Methylprednisolone Sod Succ 40 Mg/Ml Vial IVPUSH 40 mg Q8H GIOVANA Administration Nystatin 1 appl 07/10/23 09:00 07/10/23 08:41 Nystatin Cream 15 Gm Tube TOPICAL Not Given BID [facility] Protocol Sodium Chloride 3 ml 07/10/23 00:00 07/10/23 07:37 0.9 % Sodium Chloride Flush 3 Ml Syringe IVFLUSH Not Given QSHIFT GIOVANA Discontinued Medications Generic Name Dose Route Start Last Admin Trade Name Freq PRN Reason Stop Dose Admin Acetaminophen 650 mg 07/09/23 18:51 07/09/23 20:01 Acetaminophen 325 Mg Tablet PO 07/09/23 18:52 650 mg ONCE ONE Administration Fluconazole 150 mg 07/09/23 19:37 07/09/23 20:00 Fluconazole 150 Mg Tablet PO 07/09/23 19:38 150 mg ONCE ONE Administration Ceftriaxone Sodium 1 gm/ 50 mls @ 100 mls/hr 07/09/23 19:37 07/09/23 20:35 Sodium Chloride IV 07/09/23 20:06 Infused ONCE ONE Infusion Sodium Chloride 1,000 mls @ 75 mls/hr 07/10/23 06:45 07/10/23 07:26 Ns IVCONT 75 mls/hr .[id number] GIOVANA Administration Iohexol 100 ml 07/09/23 20:43 07/09/23 20:43 Iohexol 350 Mg/Ml 100 Ml Infus..Btl IV 07/09/23 20:44 85 ml ONCE ONE Administration Medical Decision Making Medical Decision Making [facility] Narrative: Patient is a 48 year old assigned male at with a history of psoriasis presenting to the emergency department today with fever, chills, and worsening psoriasis flare. Patient's physical exam was as noted in the physical exam portion of this chart. Patient's blood work showed an elevated WBC count of 14.7, ESR 28, sodium 134, CRP of 8.44, and an albumin of 3.3. The rest of the patient's labs are grossly normal. Patient's pelvis CT showed mild fat stranding in the superficial soft tissues of the thighs, left greater than right with no abscess. Patient's clinical presentation is most consistent with cellulitis. Patient's clinical presentation is not consistent with sepsis or septic shock (@2000). I called and spoke with the hospitalist who agreed to admission. Patient was given IV rocephin and PO fluconazole. I explained my physical exam findings as well as all test results to the patient. I answered all questions asked by the patient. Patient verbalized agreement and understanding with this treatment plan and admission. Differential Diagnosis Differential Diagnoses: The differential diagnosis associated with the presentation includes Cellulitis Psoriasis Hyponatremia Admission/Observation Consideration of admission/observation: Escalation of care including admission/observation considered Patient admitted. Consult Healthcare Provider Management of the patient was discussed with: Hospitalist (agreed to admission) Lab Data MDM Lab Attestation statement: I reviewed the patient's lab results. My interpretation of these lab results are in the MDM portion of this note. 07/09/23 19:30 07/09/23 19:30 Labs: Lab Results 07/09/23 07/09/23 07/09/23 Range/Units 19:30 19:30 19:30 WBC 14.7 H (4.8-10.8) X10*3/uL RBC 4.93 (4.60-5.80) X10*6/uL Hgb 13.5 L (14.0-18.0) g/dl Hct 40.2 L (42.0-52.0) % MCV 81.5 (80.0-98.0) fL MCH 27.4 (27.0-33.0) pg MCHC 33.6 (31.0-36.0) g/dl RDW 13.2 (11.0-16.0) % Plt Count 354 (160-400) X10*3/uL MPV 11.1 (9.4-12.4) fL Immature Gran % (Auto) 0.7 H (0.0-0.4) % Neut % (Auto) 79.5 H (45-73) % Lymph % (Auto) 8.4 L (20-40) % [place] % (Auto) 9.4 (2-11) % Eos % (Auto) 1.8 (0-4) % Baso % (Auto) 0.2 (0-2) % Lymph # (Auto) 1.2 (1.2-4.9) X10*3/uL [place] # (Auto) 1.4 H (0.1-1.2) X10*3/uL Eos # (Auto) 0.3 (0.0-0.4) X10*3/uL Baso # (Auto) 0.0 (0.0-0.2) X10*3/uL Abs Immat Gran (auto) 0.11 H (0.00-0.03) X10*3/uL Absolute Neuts (auto) 11.7 H (2.0-8.3) x10*3/uL Absolute Nucleated RBC 0.000 (0.0-0.012) X10*3/uL Nucleated RBC % (auto) 0.0 (0.0-0.2) /100WBC ESR 28 H (0-15) MM/HR Sodium 134 L (135-145) mmol/L Potassium 4.7 D (3.3-5.1) mmol/L Chloride 99 (96-108) mmol/L Carbon Dioxide 24 (22-29) mmol/L Anion Gap 16 (12-20) BUN 11 (9-16) mg/dL Creatinine 0.97 (0.5-1.4) mg/dL Estim Creat Clear Calc 119.1 Estimated GFR > 60 Random Glucose 89 (60-115) mg/dL Lactic Acid (0.5-2.0) mmol/L Calcium 8.4 D (8.4-10.2) mg/dL Magnesium 1.9 (1.6-2.6) mg/dL Total Bilirubin 0.5 (0.0-1.0) mg/dL AST 28 (5-37) U/L ALT 16 (0-40) U/L Alkaline Phosphatase 68 (39-117) U/L C-Reactive Protein 8.44 H (< or = 0.50) mg/dL Total Protein 7.5 (6.5-8.0) g/dL Albumin 3.3 L (3.5-5.0) g/dL COVID-19 ([facility]) (Negative) COVID-19 Clin Com 07/09/23 07/09/23 Range/Units 19:31 19:31 WBC (4.8-10.8) X10*3/uL RBC (4.60-5.80) X10*6/uL Hgb (14.0-18.0) g/dl Hct (42.0-52.0) % MCV (80.0-98.0) fL MCH (27.0-33.0) pg MCHC (31.0-36.0) g/dl RDW (11.0-16.0) % Plt Count (160-400) X10*3/uL MPV (9.4-12.4) fL Immature Gran % (Auto) (0.0-0.4) % Neut % (Auto) (45-73) % Lymph % (Auto) (20-40) % [place] % (Auto) (2-11) % Eos % (Auto) (0-4) % Baso % (Auto) (0-2) % Lymph # (Auto) (1.2-4.9) X10*3/uL [place] # (Auto) (0.1-1.2) X10*3/uL Eos # (Auto) (0.0-0.4) X10*3/uL Baso # (Auto) (0.0-0.2) X10*3/uL Abs Immat Gran (auto) (0.00-0.03) X10*3/uL Absolute Neuts (auto) (2.0-8.3) x10*3/uL Absolute Nucleated RBC (0.0-0.012) X10*3/uL Nucleated RBC % (auto) (0.0-0.2) /100WBC ESR (0-15) MM/HR Sodium (135-145) mmol/L Potassium (3.3-5.1) mmol/L Chloride (96-108) mmol/L Carbon Dioxide (22-29) mmol/L Anion Gap (12-20) BUN (9-16) mg/dL Creatinine (0.5-1.4) mg/dL Estim Creat Clear Calc Estimated GFR Random Glucose (60-115) mg/dL Lactic Acid 2.0 (0.5-2.0) mmol/L Calcium (8.4-10.2) mg/dL Magnesium (1.6-2.6) mg/dL Total Bilirubin (0.0-1.0) mg/dL AST (5-37) U/L ALT (0-40) U/L Alkaline Phosphatase (39-117) U/L C-Reactive Protein (< or = 0.50) mg/dL Total Protein (6.5-8.0) g/dL Albumin (3.5-5.0) g/dL COVID-19 ([facility]) Negative (Negative) COVID-19 Clin Com See Note Independent Interpretation I performed an independent interpretation of an: CT Scan Interpretation: My interpretation is in agreement with the radiologist's impression of this imaging study. EXAMINATION: CT PELVIS WITH CONTRAST CLINICAL INFORMATION: Possible scrotal abscess.? COMPARISON: None available.? ? TECHNIQUE: Helical scanning was performed with submillimeter collimation through the pelvis with the use of oral contrast and during bolus intravenous injection of 85 mL of Omnipaque 350 intravenous contrast. Sagittal and coronal multiplanar 2-D reconstructions were obtained. This CT examination was performed using dose optimization techniques as appropriate, variously including the following: *Automated exposure control *Adjustment of mA and/or kV according to patient size (this includes techniques or standardized protocols for targeted exams where dose is matched to indication/reason for exam; i.e. extremities or head) *Use of iterative reconstruction technique DLP: 410 mGy-cm FINDINGS: Mild fat stranding in the superficial soft tissues of the thighs, left side axial image 68 and right side axial image 71 series 2. Bilateral pelvic and inguinal lymphadenopathy for instance a left inguinal lymph node measuring 1.6 cm short axis on the left side on axial image 40 series 2, and a right common iliac lymph node measuring 1.1 cm short axis on image 5 series 2. No organized collection or abscess formation. The visualized bowel is within normal limits. No focal urinary bladder abnormality. Normal prostate gland and seminal vesicles. No free fluid in the pelvis. CT/CT pelvis w IV con IMPRESSION: 1.? Mild fat stranding in the superficial soft tissues of the thighs, left side greater than right. No organized collection or abscess formation. Further evaluation with a targeted scrotal ultrasound could be obtained as clinically indicated. 2.? Bilateral pelvic and inguinal lymphadenopathy, nonspecific. If the patient has risk factors for malignancy if tissue sampling is not obtained, a short-term follow-up examination is recommended. Dictated By: Venessa Hoang Signed By: Electronically signed by [place] 07/09/23 8865 Radiology Impression Discussion of test interpretation with radiology: I have reviewed the radiologist's reading. External Record Review External record reviewed: Other (reviewed previous ED records) Chronic Conditions Patient?s care impacted by: Other (psoriasis) Critical Care Time Critical Care Time Critical Care Time: Yes Total Critical Care Time: 40 Attestation: I spent 40 minutes of Critical Care Time with this patient. This does not include time spent on separately reported billable procedures. Discharge Plan Discharge Clinical Impression: Cellulitis, Acute hyponatremia Patient Disposition: Admitted As Inpatient
[2023-07-09 18:00] VITALS: BP 130/58; PULSE 78; RESP 20; TEMP 37.3; O2SAT 97
[2023-07-09 18:04] VITALS: BP 155/76; PULSE 103; RESP 20; TEMP 37.8; O2SAT 98
[2023-07-09 19:38] LABS: MANUAL DIFF FLAG NO
[2023-07-09 19:49] LABS: Basophils Percent Auto 0.2 % (0-2); Eosinophils Absolute Auto 0.3 X10*3/uL (0.0-0.4); Eosinophils Percent Auto 1.8 % (0-4); Hematocrit 40.2 % (42.0-52.0); Hemoglobin 13.5 g/dl (14.0-18.0); Imm Gran Abs Auto 0.11 X10*3/uL (0.00-0.03); Imm Gran Pct Auto 0.7 % (0.0-0.4); Lymphocytes Absolute Auto 1.2 X10*3/uL (1.2-4.9); Lymphocytes Percent Auto 8.4 % (20-40); Mean Corpuscular HGB Conc 33.6 g/dl (31.0-36.0); Mean Corpuscular Hemoglobin 27.4 pg (27.0-33.0); Mean Corpuscular Volume 81.5 fL (80.0-98.0); Mean Platelet Volume 11.1 fL (9.4-12.4); Monocytes Absolute Auto 1.4 X10*3/uL (0.1-1.2); Monocytes Percent Auto 9.4 % (2-11); Neutrophils Absolute Auto 11.7 x10*3/uL (2.0-8.3); Neutrophils Percent Auto 79.5 % (45-73); Platelet Count 354 X10*3/uL (160-400); Red Blood Count 4.93 X10*6/uL (4.60-5.80); Red Cell Distribution Width 13.2 % (11.0-16.0); White Blood Count 14.7 X10*3/uL (4.8-10.8)
[2023-07-09] MEDS: Fluconazole 150 MG TABLET PO (20:00)
[2023-07-09] MEDS: cefTRIAXone sodium 1 GM in 0.9 % Sodium Chloride 50 ML IV (20:00)
[2023-07-09] MEDS: Acetaminophen 325 MG TABLET 650 MG PO (20:01)
[2023-07-09 20:02] LABS: COVID-19 Test Negative (Negative); IDNOW Serial# 08D9AD1C
[2023-07-09 20:16] LABS: Alanine Aminotransferase 16 U/L (0-40); Albumin Level 3.3 g/dL (3.5-5.0); Alkaline Phosphatase 68 U/L (39-117); Anion Gap 16 (12-20); Aspartate Amino Transferase 28 U/L (5-37); Bilirubin Total 0.5 mg/dL (0.0-1.0); Blood Urea Nitrogen 11 mg/dL (9-16); C Reactive Protein 8.44 mg/dL (< or = 0.50); Calcium 8.4 mg/dL (8.4-10.2); Carbon Dioxide 24 mmol/L (22-29); Chloride 99 mmol/L (96-108); Creatinine Clr Calc Pharmacy 119.1; Estimated Glomerular Filt Rate > 60; Glucose Random 89 mg/dL (60-115); Magnesium 1.9 mg/dL (1.6-2.6); Potassium 4.7 mmol/L (3.3-5.1); Sodium 134 mmol/L (135-145); Total Protein 7.5 g/dL (6.5-8.0)
--- NOTE | 2023-07-09 20:23 | PC.NURSE ---
labs obtained,BC x2, lactic pending results 20G iv placed in R-wrist, secured with tegaderm followed by kerlix secured with tape, pt has poor skin integrity in area of insertion site, kerlix applied for comfort and to secure catheter. APAP 650 given for elevated temp 100.1 orally. 1st dose ABX therapy (ceftriaxone) currently infusing per order. pt awaiting c/t w/ contrast, r/o fourniers gangrene. pt alert and cooperative call gauthier within reach
[2023-07-09 20:34] LABS: Erythrocyte Sedimentation Rate 28 MM/HR (0-15)
--- NOTE | 2023-07-09 20:34 | PC.NURSE ---
pt in CT at this time
[2023-07-09] MEDS: iohexoL 350 MG/ML 100 ML INFUS..BTL IV (20:43)
[2023-07-09 21:20] VITALS: TEMP 37.5
--- NOTE | 2023-07-09 22:58 | PC.NURSE ---
med rec completed, belongings list completed- pt to be transferred to ED 2 Report given to DAKSHA Bridges
--- NOTE | 2023-07-09 23:54 | P.HPHOSP_ITS ---
History of Present Illness Date of Service: 07/09/23 Chief Complaint: cellulitis 48-year-old male with past medical history of psoriasis comes into the hospital with complaints of worsening psoriasis flare, and pain in his scrotum area. Patient was seen in the hospital on 8 , with psoriasis flare, that time he was given prednisone for 5 days, he reports that he completed his course and was seen by Chiang his diabetes education coordinator, diabetes education coordinator change his injectable immunologic to pills, as been taking over the past few days but developed severe flare of his psoriasis, as well as pain in his scrotum. Patient reports a fever of 101 at home, he has chills, denies any chest pain, no shortness breath, no abdominal pain nausea or vomiting, no diarrhea constipation, no urinary symptoms and no lower extremity edema On arrival to the ED patient found to have a fever of 100.0 Labs are significant for WBC count of 14.7, ESR of 28, sodium 134, CRP of 8.4, patient started on IV antibiotics, and anti fungal and will be admitted for further management and monitoring Review of Systems Review of Systems: Yes all other systems are reviewed and are negative [facility] Medical History Anxiety and depression History of psoriasis Surgical History (Updated 07/10/23 @ 06:34 by Jordana Chinchilla MD) No pertinent past surgical history Social History Alcohol intake: never Substance Use Type: Marijuana Advance Directives: No Advance Directives Information Provided: Yes Meds Allergies Allergy/AdvReac Type Severity Reaction Status Date / Time No Known Allergies Allergy Verified 04/02/23 13:42 Home Medications Medication Instructions Recorded Confirmed Last Taken Type clobetasol 0.05 % shampoo topical 3XW 07/09/23 Unknown History deucravacitinib 6 mg tablet 6 mg PO QAM 07/09/23 07/09/23 07/09/23 History (Sotyktu) 6 mg lorazepam 0.5 mg tablet 0.5 mg PO BID PRN anxiety 07/09/23 07/09/23 07/08/23 History quetiapine 50 mg tablet (Seroquel) 25 - 50 mg PO BEDTIME PRN Anxiety 07/09/23 07/09/23 07/08/23 History Physical Exam Vital Signs and Narrative: Vital Signs: Last Vital Signs Temp 99.5 F 07/09/23 21:20 Pulse 103 H 07/09/23 18:04 Resp 20 07/09/23 18:04 BP 155/76 H 07/09/23 18:04 Pulse Ox 98 07/09/23 18:04 O2 Del Method Room Air 07/09/23 18:04 BMI result Body Mass Index 43.8 Results Labs 07/09/23 19:30 07/09/23 19:30 Labs: Laboratory Results - last 24 hr 07/09/23 07/09/23 07/09/23 19:30 19:30 19:30 MCV 81.5 MCH 27.4 MCHC 33.6 RDW 13.2 Plt Count 354 MPV 11.1 Immature Gran % (Auto) 0.7 H Neut % (Auto) 79.5 H Lymph % (Auto) 8.4 L [place] % (Auto) 9.4 Eos % (Auto) 1.8 Baso % (Auto) 0.2 Lymph # (Auto) 1.2 [place] # (Auto) 1.4 H Eos # (Auto) 0.3 Baso # (Auto) 0.0 Abs Immat Gran (auto) 0.11 H Absolute Neuts (auto) 11.7 H Absolute Nucleated RBC 0.000 Nucleated RBC % (auto) 0.0 ESR 28 H Anion Gap 16 Estim Creat Clear Calc 119.1 Estimated GFR > 60 Random Glucose 89 Lactic Acid Calcium 8.4 D Magnesium 1.9 Total Bilirubin 0.5 AST 28 ALT 16 Alkaline Phosphatase 68 C-Reactive Protein 8.44 H Total Protein 7.5 Albumin 3.3 L COVID-19 ([facility]) COVID-19 Clin Com 07/09/23 07/09/23 19:31 19:31 MCV MCH MCHC RDW Plt Count MPV Immature Gran % (Auto) Neut % (Auto) Lymph % (Auto) [place] % (Auto) Eos % (Auto) Baso % (Auto) Lymph # (Auto) [place] # (Auto) Eos # (Auto) Baso # (Auto) Abs Immat Gran (auto) Absolute Neuts (auto) Absolute Nucleated RBC Nucleated RBC % (auto) ESR Anion Gap Estim Creat Clear Calc Estimated GFR Random Glucose Lactic Acid 2.0 Calcium Magnesium Total Bilirubin AST ALT Alkaline Phosphatase C-Reactive Protein Total Protein Albumin COVID-19 ([facility]) Negative COVID-19 Clin Com See Note Imaging Radiologist's Impressions: Impressions Pelvis CT 07/09/23 20:44 IMPRESSION: 1. Mild fat stranding in the superficial soft tissues of the thighs, left side greater than right. No organized collection or abscess formation. Further evaluation with a targeted scrotal ultrasound could be obtained as clinically indicated. 2. Bilateral pelvic and inguinal lymphadenopathy, nonspecific. If the patient has risk factors for malignancy if tissue sampling is not obtained, a short-term follow-up examination is recommended. Assessment and Plan (1) Cellulitis: Status: Acute (2) Acute hyponatremia: Status: Acute Plan 48-year-old male with past medical history of psoriasis comes into the hospital with swelling of his scrotum redness and pain found to have acute cellulitis # acute cellulitis - secondary to underlying psoriasis - in the scrotum region - will treat with IV antibiotics given the fever and leukocytosis - nystatin cream for superimposed fungal infection - follow cultures # acute hyponatremia - mild - placed on small amount of NS - follow BMP # psoriasis flare - continue home biologic - will add steroids - follow-up patient with dermatology DVT prophylaxis: Lovenox Given need for IV antibiotics for the cellulitis patient require minimum 2 nigh ts inpatient hospital stay for further management and monitoring Time Spent With Patient Time: Total time managing care of this patient today ____ minutes. Quality Stroke Does the patient have a stroke diagnosis?: No VTE Prior VTE?: No VTE Risk Level:: Medical - moderate - high VTE Device Contraindication: Treatment Not Indicated VTE Drug Contraindication: N/A - Med Ordered
[2023-07-10 01:11] VITALS: BP 109/57; PULSE 82; RESP 17; TEMP 37.3; O2SAT 99
[2023-07-10] MEDS: ceFAZolin Sodium/Dextrose,Iso 2 GM/50 ML PIGGYBACK IV ×3 (01:40→15:45)
[2023-07-10] MEDS: methylPREDNISolone Sod Succ 40 MG/ML VIAL IVPUSH ×3 (01:40→15:45)
[2023-07-10] MEDS: 0.9 % Sodium Chloride Flush 3 ML SYRINGE IVFLUSH ×2 (01:40→15:44)
[2023-07-10 01:45] VITALS: BP 104/38; PULSE 76; RESP 18; TEMP 36.7; O2SAT 99
--- NOTE | 2023-07-10 05:42 | PC.NURSE ---
This RN assumed care at 2300 from Malissa Feliz LPN. Patient is calm, resting comfortably in bed, vitals stable and IV secured. Patient slept throughout the night, able to make needs known, will continue to monitor
[2023-07-10 07:17] LABS: Basophils Percent Auto 0.2 % (0-2); Eosinophils Percent Auto 0.1 % (0-4); Hematocrit 42.7 % (42.0-52.0); Hemoglobin 14.2 g/dl (14.0-18.0); Imm Gran Abs Auto 0.07 X10*3/uL (0.00-0.03); Imm Gran Pct Auto 0.5 % (0.0-0.4); Lymphocytes Absolute Auto 0.7 X10*3/uL (1.2-4.9); MANUAL DIFF FLAG SCAN; Mean Corpuscular Hemoglobin 27.6 pg (27.0-33.0); Mean Corpuscular Volume 82.9 fL (80.0-98.0); Mean Platelet Volume 11.3 fL (9.4-12.4); Monocytes Absolute Auto 0.3 X10*3/uL (0.1-1.2); Neutrophils Absolute Auto 12.1 x10*3/uL (2.0-8.3); Neutrophils Percent Auto 92.2 % (45-73); Platelet Count 336 X10*3/uL (160-400); Red Blood Count 5.15 X10*6/uL (4.60-5.80); Red Cell Distribution Width 13.3 % (11.0-16.0); SCAN SMEAR FLAG 1; White Blood Count 13.1 X10*3/uL (4.8-10.8)
[2023-07-10 07:22] LABS: Mean Corpuscular HGB Conc 33.3 g/dl (31.0-36.0)
[2023-07-10] MEDS: Enoxaparin Sodium 40 MG/0.4 ML SYRINGE SUBCUT (07:26)
[2023-07-10] MEDS: 0.9 % Sodium Chloride 1,000 ML 75 ML IVCONT (07:26)
[2023-07-10 07:29] VITALS: BP 118/48; PULSE 76; RESP 18; TEMP 36.8; O2SAT 98
--- NOTE | 2023-07-10 07:36 | PC.NURSE ---
patient resting in stretcher, vital signs stable, sitting up eating breakfast.
[2023-07-10 08:00] LABS: SLIDE REVIEW VERIFIED
[2023-07-10 09:38] LABS: Anion Gap 18 (12-20); Blood Urea Nitrogen 13 mg/dL (9-16); Calcium 8.8 mg/dL (8.4-10.2); Carbon Dioxide 26 mmol/L (22-29); Chloride 97 mmol/L (96-108); Creatinine Clr Calc Pharmacy 116.7; Estimated Glomerular Filt Rate > 60; Glucose Random 106 mg/dL (60-115); Sodium 137 mmol/L (135-145)
--- NOTE | 2023-07-10 10:19 | MHC.CM.PN ---
This promotion writer met with patient for CM assessment. From home, lives with mother. No services prior to hospitalization. Independent. PCP verified. HCP requested. D/C plan- home no services, family to transport. Open to [facility] as appropriate @ d/c.
--- NOTE | 2023-07-10 10:19 | PHA.MEDREC ---
Pharmacy Consult ? Medication Reconciliation Pharmacy has completed the medication reconciliation. spoke with patient to confirm medications.
[2023-07-10 10:51] VITALS: BP 117/55; PULSE 73; RESP 16; TEMP 36.7; O2SAT 97
[2023-07-10 12:12] LABS: Appearance Urine Clear; Color Urine Yellow; Glucose Urine UA Negative (Negative); Leukocyte Esterase Urine Negative (Negative); Nitrite Urine Negative (Negative); PH 5.5 (5.0-9.0); Specific Gravity - Urine >= 1.030 (1.005-1.025); UMIC TRIGGER UACC YES; Urine Blood Large (3+) (Negative); Urine Ketones 15 mg/dL (Negative); Urine Protein 30 (1+) mg/dL (Neg-Trace)
[2023-07-10 12:14] LABS: Bacteria Urine None Seen (None Seen); Hyaline Casts Urine 0-2 /LPF (0-2); UACC Culture Trigger YES
[2023-07-10 14:17] VITALS: BP 142/77; PULSE 80; RESP 16; TEMP 36.6; O2SAT 99
--- NOTE | 2023-07-10 15:29 | P.PNIM_ITS ---
Subjective Subjective Date of Service: 07/11/23 Interval History: cellulitis Review of Systems cellulitis seems slightly improving psoriasis flare Physical Exam Vital Signs: Vital Signs: Last Vital Signs Temp 97.9 F 07/10/23 14:17 Pulse 80 07/10/23 14:17 Resp 16 07/10/23 14:17 BP 142/77 H 07/10/23 14:17 Pulse Ox 99 07/10/23 14:17 O2 Del Method Room Air 07/10/23 14:17 BMI result Body Mass Index 43.8 Appearance: Alert.? Oriented X3.? not in distress.? cvs: [id number], [id number]. res: clear to auscultation ,no rhonchii or wheezing abd: no rebound or guarding ,nt, bs present. ext pulses present , no cyanosis. neuro: axo3 , nonfocal. Objective Data Active Medications Acetaminophen (Acetaminophen 325 Mg Tablet) 650 mg PO Q6H PRN PRN Reason: Pain, Mild (Pain Scale 1-3) Docusate Sodium (Docusate Sodium 100 Mg Capsule) 100 mg PO DAILY PRN PRN Reason: Constipation Enoxaparin Sodium (Enoxaparin Sodium 40 Mg/0.4 Ml Syringe) 40 mg SUBCUT Q24H [facility] Last Admin: 07/10/23 07:26 Dose: 40 mg Documented By: LILIYA Cefazolin Sodium/Dextrose (Ancef) 2 gm in 50 mls @ 100 mls/hr IV Q8H [facility] Last Infusion: 07/10/23 08:04 Dose: 0 mls/hr Documented By: LEMUEL Lorazepam (Lorazepam 0.5 Mg Tablet) 0.5 mg PO BID PRN PRN Reason: anxiety Methylprednisolone Sodium Succinate (Methylprednisolone Sod Succ 40 Mg/Ml Vial) 40 mg IVPUSH Q8H [facility] Last Admin: 07/10/23 07:26 Dose: 40 mg Documented By: LILIYA Pt Own ( Deucravacitinib [ Sotyktu] 6 Mg Tablet ) 6 mg PO DAILY [facility] Last Admin: 07/10/23 11:52 Dose: Not Given Documented By: LILIYA Non-Admin Reason: Duplicate Order Nystatin (Nystatin Cream 15 Gm Tube) 1 appl TOPICAL BID [facility]; Protocol Last Admin: 07/10/23 08:41 Dose: Not Given Documented By: HO.PROVENC Non-Admin Reason: Patient Refused Ondansetron HCl (Ondansetron Hcl 4 Mg/2 Ml Vial) 4 mg IVPUSH Q8H PRN PRN Reason: Nausea and Vomiting Oxycodone HCl (Oxycodone Hcl Immed Release 5 Mg Tablet) 5 mg PO Q6H PRN PRN Reason: Pain, Severe (Pain Scale 7-10) Quetiapine Fumarate (Quetiapine Fumarate 50 Mg Tablet) 25 mg PO BEDTIME PRN PRN Reason: Anxiety Sodium Chloride (0.9 % Sodium Chloride Flush 3 Ml Syringe) 3 ml IVFLUSH QSHIFT [facility] Last Admin: 07/10/23 07:37 Dose: Not Given Documented By: HOSilvanaPROVENC Non-Admin Reason: IV Running Labs 07/10/23 06:59 07/10/23 06:59 Labs: Laboratory Results - last 24 hr 07/09/23 07/09/23 07/09/23 19:30 19:30 19:30 MCV 81.5 MCH 27.4 MCHC 33.6 RDW 13.2 Plt Count 354 MPV 11.1 Immature Gran % (Auto) 0.7 H Neut % (Auto) 79.5 H Lymph % (Auto) 8.4 L [place] % (Auto) 9.4 Eos % (Auto) 1.8 Baso % (Auto) 0.2 Lymph # (Auto) 1.2 [place] # (Auto) 1.4 H Eos # (Auto) 0.3 Baso # (Auto) 0.0 Abs Immat Gran (auto) 0.11 H Absolute Neuts (auto) 11.7 H Absolute Nucleated RBC 0.000 Nucleated RBC % (auto) 0.0 Smear Tech's Comments ESR 28 H Anion Gap 16 Estim Creat Clear Calc 119.1 Estimated GFR > 60 Random Glucose 89 Lactic Acid Calcium 8.4 D Magnesium 1.9 Total Bilirubin 0.5 AST 28 ALT 16 Alkaline Phosphatase 68 C-Reactive Protein 8.44 H Total Protein 7.5 Albumin 3.3 L Urine Color Urine Appearance Urine pH Ur Specific [place] Urine Protein Urine Glucose (UA) Urine Ketones Urine Blood Urine Nitrite Ur Leukocyte Esterase Urine RBC Urine WBC Ur Squamous Epith Cells Urine Bacteria Hyaline Casts COVID-19 ([facility]) COVID-19 Clin Com 07/09/23 07/09/23 07/10/23 19:31 19:31 06:59 MCV 82.9 MCH 27.6 MCHC 33.3 RDW 13.3 Plt Count 336 MPV 11.3 Immature Gran % (Auto) 0.5 H Neut % (Auto) 92.2 H Lymph % (Auto) 5.0 L [place] % (Auto) 2.0 Eos % (Auto) 0.1 Baso % (Auto) 0.2 Lymph # (Auto) 0.7 L [place] # (Auto) 0.3 Eos # (Auto) 0.0 Baso # (Auto) 0.0 Abs Immat Gran (auto) 0.07 H Absolute Neuts (auto) 12.1 H Absolute Nucleated RBC 0.000 Nucleated RBC % (auto) 0.0 Smear Tech's Comments VERIFIED ESR Anion Gap Estim Creat Clear Calc Estimated GFR Random Glucose Lactic Acid 2.0 Calcium Magnesium Total Bilirubin AST ALT Alkaline Phosphatase C-Reactive Protein Total Protein Albumin Urine Color Urine Appearance Urine pH Ur Specific [place] Urine Protein Urine Glucose (UA) Urine Ketones Urine Blood Urine Nitrite Ur Leukocyte Esterase Urine RBC Urine WBC Ur Squamous Epith Cells Urine Bacteria Hyaline Casts COVID-19 ([facility]) Negative COVID-19 Clin Com See Note 07/10/23 07/10/23 06:59 12:05 MCV MCH MCHC RDW Plt Count MPV Immature Gran % (Auto) Neut % (Auto) Lymph % (Auto) [place] % (Auto) Eos % (Auto) Baso % (Auto) Lymph # (Auto) [place] # (Auto) Eos # (Auto) Baso # (Auto) Abs Immat Gran (auto) Absolute Neuts (auto) Absolute Nucleated RBC Nucleated RBC % (auto) Smear Tech's Comments ESR Anion Gap 18 Estim Creat Clear Calc 116.7 Estimated GFR > 60 Random Glucose 106 Lactic Acid Calcium 8.8 Magnesium Total Bilirubin AST ALT Alkaline Phosphatase C-Reactive Protein Total Protein Albumin Urine Color Yellow Urine Appearance Clear Urine pH 5.5 Ur Specific [place] >= 1.030 H Urine Protein 30 (1+) H Urine Glucose (UA) Negative Urine Ketones 15 Urine Blood Large (3+) H Urine Nitrite Negative Ur Leukocyte Esterase Negative Urine RBC 11-20 H Urine WBC 6-10 H Ur Squamous Epith Cells 6-10 Urine Bacteria None Seen Hyaline Casts 0-2 COVID-19 ([facility]) COVID-19 Clin Com Assessment and Plan (1) Cellulitis: Status: Acute (2) Acute hyponatremia: Status: Acute Plan 48-year-old male with past medical history of psoriasis comes into the hospital with swelling of his scrotum redness and pain found to have acute cellulitis acute cellulitis - secondary to underlying psoriasis - in the scrotum region - will treat with IV antibiotics given the fever and leukocytosis - nystatin cream for superimposed fungal infection - follow cultures acute hyponatremia - mild,likely due to low po intake - placed on small amount of NS - follow BMP psoriasis flare - continue home biologic - will add steroids - follow-up patient with dermatology DVT prophylaxis:? Lovenox ongoing inpatient need : cellulitis in setting of severe psoriasis flare - IV antibiotics and steriods ,Id eval. Time Spent With Patient Time: Total time managing care of this patient today ____ minutes. Quality Stroke Does the patient have a stroke diagnosis?: No VTE Prior VTE?: No VTE Risk Level:: Medical - moderate - high VTE Device Contraindication: Treatment Not Indicated VTE Drug Contraindication: N/A - Med Ordered
--- NOTE | 2023-07-10 19:10 | PC.NURSE ---
Assumed care at 16:15. Patient alert and oriented x4. Standed and pivoted to the bed from the stretcher. Patient with rash over whole body, reports it is psoriasis. Reports it has been itchy and painful. Creams ordered and not here yet from pharmacy, pharmacy notified. .
[2023-07-10 20:48] VITALS: BP 151/79; PULSE 112; RESP 20; TEMP 35.9; O2SAT 94
[2023-07-10] MEDS: oxyCODONE HCl Immed Release 5 MG TABLET PO (21:23)
[2023-07-11] VITALS: BP 141/93; PULSE 123; RESP 18; TEMP 37.1; O2SAT 97
[2023-07-11] MEDS: ceFAZolin Sodium/Dextrose,Iso 2 GM/50 ML PIGGYBACK IV ×3 (00:14→15:59)
[2023-07-11] MEDS: diphenhydrAMINE HCL 50 MG/ML VIAL IVPUSH (00:15)
[2023-07-11] MEDS: methylPREDNISolone Sod Succ 40 MG/ML VIAL IVPUSH ×3 (00:15→17:00)
[2023-07-11] MEDS: Betamethasone Dip Aug 0.05% Cr 15 GM TUBE 1 APPL TOPICAL ×2 (00:16→09:00)
[2023-07-11] MEDS: Nystatin Cream 15 GM TUBE 1 APPL TOPICAL ×2 (00:16→09:00)
[2023-07-11] MEDS: Mineral Oil/Petrolatum,White 106 GM Tube 1 APPL TOPICAL ×2 (00:19→09:00)
[2023-07-11] MEDS: 0.9 % Sodium Chloride Flush 3 ML SYRINGE IVFLUSH ×3 (00:20→16:59)
[2023-07-11 03:37] VITALS: BP 125/60; PULSE 71; RESP 18; TEMP 36.6; O2SAT 96
[2023-07-11 07:22] VITALS: BP 118/55; PULSE 75; RESP 16; TEMP 36.3; O2SAT 98
[2023-07-11] MEDS: Enoxaparin Sodium 40 MG/0.4 ML SYRINGE SUBCUT (08:58)
[2023-07-11] MEDS: Omeprazole 20 MG CAPSULE.DR PO ×2 (09:00→17:00)
[2023-07-11 11:16] VITALS: BP 116/85; PULSE 75; RESP 17; TEMP 36.6; O2SAT 96
--- NOTE | 2023-07-11 14:33 | P.CDIM_ITS ---
PROVIDER RESPONSE TEXT: To clarify, the appropriate diagnosis supported by the clinical indicators: Obesity Due to excess calories QUERY TEXT: PHYSICIAN'S DOCUMENTATION REQUEST Date of Query: 07/11/2023 08:59 AM EDT Patient Name: Mina France Admit Date: 07/10/2023 Dear Erinn Yousif, A review of the medical record indicates additional documentation may be needed. Please review below and update the documentation accordingly. Clinical Indicators: Height: ( ) 5'7 Weight: ( ) 127.006 kg BMI: ( ) 43.9 If possible, please provide an associated diagnosis related to the abnormal BMI, such as: Overweight Obesity Due to excess calories Obesity Drug induced Obesity Due to other cause Specify the other cause Severe or Morbid Obesity With alveolar hypoventilation Severe or Morbid Obesity Without alveolar hypoventilation BMI is not significant Other (explain)Clinically unable to determine (explain)Thank you, Tarah Cook RN Use of terms such as suspected, likely, concern for, or probable (associated with a specific diagnosi s that is being evaluated, monitored, or treated as if it exists) are acceptable and can be coded in the inpatient se tting, when documented at the time of discharge. Please use your independent medical judgment in providing your response. THIS QUERY IS PART OF THE PERMANENT MEDICAL RECORD
--- NOTE | 2023-07-11 14:36 | P.PNIM_ITS ---
Subjective Subjective Date of Service: 07/11/23 Interval History: cellulitis Review of Systems still has diffuse proasis flare /erythema no fevers Physical Exam Vital Signs: Vital Signs: Last Vital Signs 07/11/23 11:16 BMI result Body Mass Index 43.8 vitals stable Appearance: Alert.? Oriented X3.? not in distress.? cvs: [id number], [id number]. res: clear to auscultation ,no rhonchii or wheezing abd: no rebound or guarding ,nt, bs present. ext pulses present , no cyanosis . skin-diffuse proarsis lesions /erythema neuro: axo3 , nonfocal. Objective Data Active Medications Acetaminophen (Acetaminophen 325 Mg Tablet) 650 mg PO Q6H PRN PRN Reason: Pain, Mild (Pain Scale 1-3) Betamethasone Dipropion Augmented (Betamethasone Dip Aug 0.05% Cr 15 Gm Tube) 1 appl TOPICAL BID [facility] Last Admin: 07/11/23 09:00 Dose: 1 appl Documented By: CHRIS Docusate Sodium (Docusate Sodium 100 Mg Capsule) 100 mg PO DAILY PRN PRN Reason: Constipation Enoxaparin Sodium (Enoxaparin Sodium 40 Mg/0.4 Ml Syringe) 40 mg SUBCUT Q24H [facility] Last Admin: 07/11/23 08:58 Dose: 40 mg Documented By: CHRIS Cefazolin Sodium/Dextrose (Ancef) 2 gm in 50 mls @ 100 mls/hr IV Q8H [facility] Last Infusion: 07/11/23 12:12 Dose: 0 mls/hr Documented By: CHRIS Lorazepam (Lorazepam 0.5 Mg Tablet) 0.5 mg PO BID PRN PRN Reason: anxiety Methylprednisolone Sodium Succinate (Methylprednisolone Sod Succ 40 Mg/Ml Vial) 40 mg IVPUSH Q8H [facility] Last Admin: 07/11/23 09:00 Dose: 40 mg Documented By: CHRIS Multi-Ingred Cream/Lotion/Oil/Oint (Mineral Oil/Petrolatum,White 106 Gm Tube) 1 appl TOPICAL DAILY [facility]; Protocol Last Admin: 07/11/23 09:00 Dose: 1 appl Documented By: CHRIS Pt Own ( Deucravacitinib [ Sotyktu] 6 Mg Tablet ) 6 mg PO DAILY [facility] Last Admin: 07/11/23 09:00 Dose: 6 mg Documented By: CHRIS Nystatin (Nystatin Cream 15 Gm Tube) 1 appl TOPICAL BID [facility]; Protocol Last Admin: 07/11/23 09:00 Dose: 1 appl Documented By: CHRIS Omeprazole (Omeprazole 20 Mg Capsule.Dr) 20 mg PO BID@0630,1630 [facility] Last Admin: 07/11/23 09:00 Dose: 20 mg Documented By: CHRIS Ondansetron HCl (Ondansetron Hcl 4 Mg/2 Ml Vial) 4 mg IVPUSH Q8H PRN PRN Reason: Nausea and Vomiting Oxycodone HCl (Oxycodone Hcl Immed Release 5 Mg Tablet) 5 mg PO Q6H PRN PRN Reason: Pain, Severe (Pain Scale 7-10) Last Admin: 07/10/23 21:23 Dose: 5 mg Documented By: JOANNA Quetiapine Fumarate (Quetiapine Fumarate 50 Mg Tablet) 25 mg PO BEDTIME PRN PRN Reason: Anxiety Sodium Chloride (0.9 % Sodium Chloride Flush 3 Ml Syringe) 3 ml IVFLUSH QSHIFT [facility] Last Admin: 07/11/23 08:58 Dose: 3 ml Documented By: CHRIS Labs 07/10/23 06:59 07/10/23 06:59 Microbiology Microbiology Results: Microbiology 07/10/23 Unknown Urine Culture - Final Urine clean catch - Urine chapman top 07/09/23 19:30 Blood Culture - Preliminary Blood - Venous No growth after 24 hours. 07/09/23 19:30 Blood Culture - Preliminary Blood - Venous No growth after 24 hours. Assessment and Plan (1) Cellulitis: Status: Acute (2) Acute hyponatremia: Status: Acute Plan 48-year-old male with past medical history of psoriasis comes into the hospital with swelling of his scrotum redness and pain found to have acute cellulitis acute cellulitis - secondary to underlying psoriasis - in the scrotum region IV antibiotics cefzolin day2 ,blood cultures neg@24hrs - nystatin cream for superimposed fungal infection - follow cultures acute hyponatremia - mild,likely due to low po intake - placed on small amount of NS - follow BMP psoriasis flare - continue home biologic - will add steroids - follow-up patient with dermatology DVT prophylaxis:? Lovenox ongoing inpatient need : cellulitis in setting of severe psoriasis flare - IV antibiotics and steriods ,Id eval. Time Spent With Patient Time: Total time managing care of this patient today ____ minutes. Quality Stroke Does the patient have a stroke diagnosis?: No VTE Prior VTE?: No VTE Risk Level:: Medical - moderate - high VTE Device Contraindication: Treatment Not Indicated VTE Drug Contraindication: N/A - Med Ordered
[2023-07-11 15:23] VITALS: BP 120/56; PULSE 74; RESP 18; TEMP 36.2; O2SAT 94
--- NOTE | 2023-07-11 17:24 | P.DS_ITS ---
DS: Providers Provider Date of Service: 07/11/23 Date of admission: 07/09/23 23:51 Date of discharge: 07/11/23 Primary care physician: Susan Meza Consults: 07/11/23 08:43 Consult to Infectious Diseases Routine Consulting Provider: [facility] Infectious [facility] Reason for consultation: cellulitis/in setting of psoriasis flare Has provider been notified: No 07/11/23 16:45 Consult to Urology Routine Consulting Provider: [facility] Urology Services Reason for consultation: proriasis flare and scrotal cellulitis Has provider been notified: No Attending physician on discharge: Erinn Yousif Discharging clinician: Erinn Yousif DS: Diagnosis Discharge Diagnosis (1) Cellulitis: Status: Acute (2) Acute hyponatremia: Status: Acute (3) Psoriasis: Status: Inactive DS: Summary Hospital Course Hospital Course: 48-year-old male with past medical history of psoriasis comes into the hospital with complaints of worsening psoriasis flare, and pain in his scrotum area.? Patient was seen in the hospital on 07 02, with psoriasis flare, that time he was given prednisone for 5 days, he reports that he completed his course and was seen by Mariia mcgraw vaccinator, vaccinator change his injectable immunologic to pills, as been taking over the past few days but developed severe flare of his psoriasis, as well as pain in his scrotum.? Patient reports a fever of 101 at home, he has chills, denies any chest pain, no shortness breath, no abdominal p ain nausea or vomiting, no diarrhea constipation, no urinary symptoms and no lower extremity edema On arrival to the ED patient found to have a fever of 100.0 Labs are significant for WBC count of 14.7, ESR of 28, sodium 134, CRP of 8.4, patient started on IV antibiotics, and anti fungal and will be admitted for further management and monitoring Hospitalcourse: 48-year-old male with past medical history of psoriasis comes into the hospital with swelling of his scrotum redness and pain found to have acute cellulitis Patient was admitted for severe psoriasis flare, also scrotal erythema: Found to have white count of 15, CRP 8.8, ESR of 28, blood cultures sent,pelvic ct scan done which Mild fat stranding in the superficial soft tissues of the thighs, left side greater than right. No organized collection or abscess formation- Patient was started on IV antibiotics and steroids-currently patient does not seem to be improving much - seen by infectious disease recommended to continue IV antibiotic and steroids and also in addition patient may benefit transferring to tertiary care for further management of severe psoriasis flare. Sacral ultrasound was ordered today-if not done then can be done in [facility]. Consider Hematology/dermatology evaluation, id evaluation if needed. Hyponatremia possibly related to decreased p.o. intake: Improved with hydration. accepting physicain -Dr Glenn yousif. Above management discussed with the patient in detail length he understand and in agreement with above plan, time spent 50 minute. Time Spent with Patient Time attestation: Total time managing care of this patient today ____ minutes. Discharge coordination time: Greater than 30 minutes Quality: Safe Use of Opioids Does Pt have an Active Cancer Diagnosis on the Problem List?: No Quality: Stroke Does the patient have a stroke diagnosis?: No Physical Exam Vital Signs: Vital Signs: Last Vital Signs Temp 97.1 F 07/11/23 15:23 Pulse 74 07/11/23 15:23 Resp 18 07/11/23 15:23 BP 120/56 L 07/11/23 15:23 Pulse Ox 94 07/11/23 15:23 O2 Del Method Room Air 07/11/23 15:23 BMI result Body Mass Index 43.8 Appearance: Alert.? Oriented X3.? not in distress.? cvs: rrr, [id number]. res: clear to auscultation ,no rhonchii or wheezing abd: no rebound or guarding ,nt, bs present. skin: Diffuse psoriatic plaquaes all over the body, has mild erythema in scotal area , no flacuattion or plapable collection ext pulses present , no cyanosis. neuro: axo3 , nonfocal. DS: Data Data Completed and Pending Labs on day of discharge: Preliminary micro results at discharge 07/09/23 19:30 Blood Culture - Preliminary Blood - Venous No growth after 24 hours. 07/09/23 19:30 Blood Culture - Preliminary Blood - Venous No growth after 24 hours. Imaging Chest x-ray: Radiologist's impression: ITS Impressions Pelvis CT 07/09/23 20:44 IMPRESSION: 1. Mild fat stranding in the superficial soft tissues of the thighs, left side greater than right. No organized collection or abscess formation. Further evaluation with a targeted scrotal ultrasound could be obtained as clinically indicated. 2. Bilateral pelvic and inguinal lymphadenopathy, nonspecific. If the patient has risk factors for malignancy if tissue sampling is not obtained, a short-term follow-up examination is recommended. Discharge Plan Discharge Anticipated Discharge Date/Time: 07/11/23 16:35 Patient Disposition: er [facility] Hospital Discharge Diagnosis: severe psoriasis flare and cellulitis Referrals: Susan Meza RN [Primary Care Provider] - 1 Week Discharge Medications: New acetaminophen 325 mg Tablet 650 mg PO Q6H PRN (Reason: Pain, Mild (Pain Scale 1-3)) Qty: 1 0RF nystatin 100,000 unit/gram Cream 1 appl topical BID Qty: 1 0RF Protocol: Apply to: Apply to: scrotum region omeprazole 20 mg Capsule,Delayed Release(Dr/Ec) 20 mg PO BID@0630,1630 Qty: 1 0RF Dermacerin Cream 1 appl topical DAILY Qty: 1 0RF Protocol: Apply to: Apply to: dry skin Solu-Medrol (PF) 40 mg/mL Recon Soln 40 mg IVPUSH Q8H Qty: 1 0RF cefazolin in dextrose (iso-os) 2 gram/50 mL Piggyback 2 g IV Q8H Qty: 1 0RF Continued lorazepam 0.5 mg tablet 0.5 mg PO BID PRN (Reason: anxiety) clobetasol 0.05 % shampoo 1 appl topical 3XW quetiapine [Seroquel] 50 mg tablet 25 - 50 mg PO BEDTIME PRN (Reason: Anxiety) Sotyktu 6 mg Tablet 6 mg PO QAM Patient Comments: pt has own supply clobetasol 0.05 % cream 1 appl topical BID diphenhydramine HCl 25 mg Tablet 25 - 50 mg PO DAILY PRN (Reason: Itching) Discharge Orders: Discharge Order (Routine); Ordered 07/11/23 Ordered By: Erinn Yousif Diet: Advance to usual diet Activity on Discharge: As tolerated Stand Alone Forms: Patient Portal Discharge page Care Plan Goals: Patient was admitted for severe psoriasis flare, also scrotal erythema: Patient was started on IV antibiotics and steroids-currently patient does not seem to be significantly better seen by infectious disease recommended to continue IV antibiotic and steroids and also in addition patient may benefit transferring to tertiary care for further management of severe psoriasis flare. Sacral ultrasound was ordered today-if not done then can be done in [facility]. Consider Hematology/dermatology evaluation, id evaluation if needed. accepting physicain -Dr Glenn yousif. Above management discussed with the patient in detail length he understand and in agreement with above plan, time spent 50 minute. Health Concerns: As above. Plan of Treatment: As above. Assessment: As above.
[2023-07-11 19:36] VITALS: BP 130/58; PULSE 80; RESP 18; TEMP 36.6; O2SAT 96
== END 2023-07-11 20:00 | disposition short-term general hospital (02) | DRG 381 ==
LOC: HO.ED 22:58 → HO.EDOVER 07-10 00:04 → HO.IMC 07-10 19:17
PROVIDERS: Physician Assistant Medical; Admitting Provider Internal Medicine; Emergency Provider Internal Medicine; Visit Provider Internal Medicine
DX: L40.9 Psoriasis, unspecified (principal); E87.1 Hypo-osmolality and hyponatremia; N49.2 Inflammatory disorders of scrotum; E66.01 Morbid (severe) obesity due to excess calories; Z68.41 Body mass index [BMI] 40.0-44.9, adult; Z20.822 Contact with and (suspected) exposure to COVID-19; Z79.620 Long term (current) use of immunosuppressive biologic; Z87.891 Personal history of nicotine dependence; Z79.899 Other long term (current) drug therapy
CPT/HCPCS: 36415; 72193; 76870; 80048; 80053; 81001; 83605; 83735; 85025; 85652; 86140; 87040; 87086; 87635; 99284; J0690; J0696; J1200; J1650; J2920; Q9967

== ENCOUNTER → 2023-07-09 23:51 | Outpatient (BNV) | payer MEDICAID, SELFPAY | PROVIDERS: Admitting Provider Internal Medicine; Emergency Provider Internal Medicine; Visit Provider Internal Medicine | DX: L40.9 Psoriasis, unspecified (principal); E87.1 Hypo-osmolality and hyponatremia | CPT/HCPCS: 99223; 99232; 99239 ==